=== PATIENT | male | born 1955 | race Caucasian/White ===

== ENCOUNTER → 2019-08-24 | Outpatient (CLI) | payer OTHER | END | disposition home or self-care (01) | LOC: NPLAB 11:39 | PROVIDERS: ATTEND Internal Medicine | DX: E72.20 Disorder of urea cycle metabolism, unspecified (principal); J18.9 Pneumonia, unspecified organism; F06.4 Anxiety disorder due to known physiological condition; M62.81 Muscle weakness (generalized); F31.0 Bipolar disorder, current episode hypomanic; R27.9 Unspecified lack of coordination; R13.12 Dysphagia, oropharyngeal phase; R47.01 Aphasia; I10 Essential (primary) hypertension; E78.5 Hyperlipidemia, unspecified; I69.351 Hemiplegia and hemiparesis following cerebral infarction affecting right dominant side; R56.9 Unspecified convulsions; I63.9 Cerebral infarction, unspecified; F06.30 Mood disorder due to known physiological condition, unspecified; E55.9 Vitamin D deficiency, unspecified; M62.50 Muscle wasting and atrophy, not elsewhere classified, unspecified site; T78.40XA Allergy, unspecified, initial encounter; R41.841 Cognitive communication deficit; Z87.440 Personal history of urinary (tract) infections; R11.2 Nausea with vomiting, unspecified; R29.3 Abnormal posture; Z79.02 Long term (current) use of antithrombotics/antiplatelets; X58.XXXA Exposure to other specified factors, initial encounter | CPT/HCPCS: 87804; 87880 ==

== ENCOUNTER → 2019-10-16 | Outpatient (CLI) | payer MEDICAID, OTHER | END | disposition home or self-care (01) | LOC: NPLAB 18:52 | PROVIDERS: ATTEND Internal Medicine | DX: L02.31 Cutaneous abscess of buttock (principal) | CPT/HCPCS: 87070; 87077; 87186 ==

== ENCOUNTER → 2020-03-12 | Outpatient (CLI) | payer MEDICAID, OTHER ==
[2020-03-12 15:12] LABS: APPEARANCE,URINE CLEAR (CLEAR); BILIRUBIN,URINE NEGATIVE (NEGATIVE); UA COLOR YELLOW (YELLOW); UROBILINOGEN,URINE NORMAL (NEGATIVE)
== END | disposition home or self-care (01) ==
LOC: NPLAB 09:48
PROVIDERS: ATTEND Internal Medicine
DX: E72.20 Disorder of urea cycle metabolism, unspecified (principal); Z87.440 Personal history of urinary (tract) infections
CPT/HCPCS: 81003

== ENCOUNTER → 2020-03-17 | Outpatient (CLI) | payer OTHER | END | disposition home or self-care (01) | LOC: NPLAB 17:49 | PROVIDERS: ATTEND Internal Medicine | DX: L02.31 Cutaneous abscess of buttock (principal) | CPT/HCPCS: 87070 ==

== ENCOUNTER → 2020-05-07 | Outpatient (CLI) | payer OTHER ==
[2020-05-07 17:09] LABS: MEAN CORP HGB 31.6 pg (26-34)
[2020-05-07 17:40] LABS: CALCIUM 8.9 mg/dL (8.4-10.5); CARBON DIOXIDE 26.6 mmol/L (20.0-32)
== END | disposition home or self-care (01) ==
LOC: NPLAB 15:36
PROVIDERS: ATTEND Internal Medicine
DX: I10 Essential (primary) hypertension (principal); R05 Cough
CPT/HCPCS: 36415; 80053; 85027; 87070; 87804; 87880

== ENCOUNTER → 2020-07-26 | Outpatient (CLI) | payer OTHER | END | disposition home or self-care (01) | LOC: NPLAB 16:40 | PROVIDERS: ATTEND Internal Medicine | DX: L02.31 Cutaneous abscess of buttock (principal) | CPT/HCPCS: 87070 ==

== ENCOUNTER → 2020-10-18 | Outpatient (CLI) | payer OTHER | END | disposition home or self-care (01) | LOC: NPLAB 20:16 | PROVIDERS: ATTEND Internal Medicine | DX: L02.31 Cutaneous abscess of buttock (principal) | CPT/HCPCS: 87070 ==